=== PATIENT | female | born 1950 | race Hispanic/Latino ===

== ENCOUNTER 2017-06-22 02:04 | Inpatient (IN) | payer OTHER ==
[2017-06-22] VITALS (7 sets, daily range): BP systolic 96–144; BP diastolic 42–96
[~2017-06-22] VITALS: Ht 160 cm; Wt 110.1 kg
[2017-06-22] MEDS ORDERED: LISI-617 PO (04:02)
[2017-06-22] MEDS ORDERED: SPIR25TA4 PO (04:02)
[2017-06-22] MEDS ORDERED: FURO20TA6 PO (04:02)
[2017-06-22] MEDS ORDERED: CARV6.2579 PO (04:02)
[2017-06-22 05:51] LABS: BASOPHILS % (AUTO) 0.1 % (0.0-5.0); HEMATOCRIT 36.8 % (36-48); LYMPHOCYTES % (AUTO) 18.5 % (21.0-51.0); MEAN CORPUSCULAR HEMOGLOBIN 26.6 pg (27.0-33.0); MEAN CORPUSCULAR HGB CONC 32.9 g/dL (32.0-36.0); MEAN CORPUSCULAR VOLUME 80.9 fL (79-99); MONOCYTES % (AUTO) 8.8 % (3.0-13.0); NEUTROPHILS % (AUTO) 72.6 % (40.0-77.0); PLATELET COUNT (AUTO) 185 K/uL (130-400); RED BLOOD CELL COUNT(AUTO) 4.55 MIL/uL (4.00-5.50); RED CELL DISTRIBUTION WIDTH 17.6 % (11.0-15.5)
[2017-06-22 06:01] LABS: INR 0.96 (0.85-1.15); PARTIAL THROMBOPLASTIN TIME 32.3 SEC (26.3-35.5); PROTHROMBIN TIME 10.1 SEC (9.6-11.6)
[2017-06-22 06:05] LABS: B-TYPE NATRIURETIC PEPTIDE 212 pg/mL (0-100)
[2017-06-22 06:13] LABS: ALBUMIN 3.3 g/dL (3.5-5.0); BILIRUBIN,TOTAL 0.5 mg/dL (0.2-1.0); CREATININE 0.9 mg/dL (0.5-1.5); MAGNESIUM 2.2 mg/dL (1.80-2.40); PHOSPHORUS 3.9 mg/dL (2.5-4.9); POTASSIUM 4.4 mmol/L (3.5-5.1); THYROID STIMULATING HORMONE 1.1 uIU/mL (0.36-3.74); TOTAL PROTEIN, SERUM 7.6 g/dL (6.0-8.3)
[2017-06-22] MEDS: IPRATROPIUM/ALBUTEROL SULFATE 3 ML SOLUTION IH SCH ×4 (08:29→18:56)
[2017-06-22] MEDS ORDERED: FUROSEMIDE 10 MG/ML 2ML VIAL IV SCH (09:00)
[2017-06-22] MEDS: MONTELUKAST SODIUM 10 MG TAB PO SCH (09:52)
[2017-06-22] MEDS: SPIRONOLACTONE 25 MG TAB PO SCH ×2 (09:52→21:08)
[2017-06-22] MEDS: LISINOPRIL 5 MG TABLET PO SCH (09:52)
[2017-06-22] MEDS: PANTOPRAZOLE SODIUM 40 MG TABLET.DR PO SCH (09:52)
[2017-06-22] MEDS: OSELTAMIVIR PHOSPHATE 75 MG CAP PO SCH ×2 (09:52→21:07)
[2017-06-22] MEDS: CARVEDILOL 6.25 MG TABLET PO SCH ×2 (09:52→21:08)
[2017-06-22 14:28] LABS: CREATINE KINASE MB 0.7 ng/mL (0.5-3.6); CREATINE KINASE, TOTAL 30 U/L (21-232); MYOGLOBIN 53 ng/mL (10-92); TROPONIN I < 0.04 ng/mL (0.00-0.06)
[2017-06-23] MEDS: IPRATROPIUM/ALBUTEROL SULFATE 3 ML SOLUTION IH SCH ×4 (00:32→19:05)
[2017-06-23 03:53] VITALS: BP 120/88
[2017-06-23 04:12] LABS: HEMATOCRIT 36.7 % (36-48); MEAN CORPUSCULAR HEMOGLOBIN 26.5 pg (27.0-33.0); MEAN CORPUSCULAR HGB CONC 32.7 g/dL (32.0-36.0); MEAN CORPUSCULAR VOLUME 81.2 fL (79-99); NUCLEATED RED BLOOD CELLS 0.1 % (0.0-0.19); PLATELET COUNT (AUTO) 178 K/uL (130-400); RED BLOOD CELL COUNT(AUTO) 4.52 MIL/uL (4.00-5.50); RED CELL DISTRIBUTION WIDTH 17.9 % (11.0-15.5); WHITE BLOOD COUNT (AUTO) 6.4 K/uL (4.8-10.8)
[2017-06-23 04:20] LABS: CREATININE 0.9 mg/dL (0.5-1.5); POTASSIUM 3.9 mmol/L (3.5-5.1)
[2017-06-23 07:00] VITALS: BP 122/62
[2017-06-23] MEDS: SPIRONOLACTONE 25 MG TAB PO SCH ×2 (09:00→20:46)
[2017-06-23] MEDS: LISINOPRIL 5 MG TABLET PO SCH (10:23)
[2017-06-23] MEDS: CARVEDILOL 6.25 MG TABLET PO SCH ×2 (10:24→20:46)
[2017-06-23 11:00] VITALS: BP 113/71
[2017-06-23 16:00] VITALS: BP 108/70
[2017-06-23] MEDS: OSELTAMIVIR PHOSPHATE 75 MG CAP PO SCH ×2 (16:42→20:45)
[2017-06-23] MEDS: MONTELUKAST SODIUM 10 MG TAB PO SCH (16:42)
[2017-06-23] MEDS: FUROSEMIDE 40 MG TABLET PO SCH (16:43)
[2017-06-23] MEDS: PANTOPRAZOLE SODIUM 40 MG TABLET.DR PO SCH (16:43)
[2017-06-23 19:49] VITALS: BP 118/58
[2017-06-24] VITALS (7 sets, daily range): BP systolic 90–134; BP diastolic 55–78
[2017-06-24] MEDS: IPRATROPIUM/ALBUTEROL SULFATE 3 ML SOLUTION IH SCH ×4 (00:40→18:57)
[2017-06-24 03:11] LABS: HEMATOCRIT 37.5 % (36-48); MEAN CORPUSCULAR HEMOGLOBIN 26.2 pg (27.0-33.0); MEAN CORPUSCULAR HGB CONC 32.4 g/dL (32.0-36.0); PLATELET COUNT (AUTO) 171 K/uL (130-400); RED BLOOD CELL COUNT(AUTO) 4.63 MIL/uL (4.00-5.50); RED CELL DISTRIBUTION WIDTH 17.6 % (11.0-15.5); WHITE BLOOD COUNT (AUTO) 6.5 K/uL (4.8-10.8)
[2017-06-24 03:17] LABS: CREATININE 0.7 mg/dL (0.5-1.5); MAGNESIUM 2.1 mg/dL (1.80-2.40); POTASSIUM 3.9 mmol/L (3.5-5.1)
[2017-06-24] MEDS: FUROSEMIDE 40 MG TABLET PO SCH (08:34)
[2017-06-24] MEDS: PANTOPRAZOLE SODIUM 40 MG TABLET.DR PO SCH (08:34)
[2017-06-24] MEDS: OSELTAMIVIR PHOSPHATE 75 MG CAP PO SCH ×2 (08:34→20:12)
[2017-06-24] MEDS: MONTELUKAST SODIUM 10 MG TAB PO SCH (08:34)
[2017-06-24] MEDS: SPIRONOLACTONE 25 MG TAB PO SCH ×2 (08:34→20:12)
[2017-06-24] MEDS: LISINOPRIL 5 MG TABLET PO SCH (08:35)
[2017-06-24] MEDS: CARVEDILOL 6.25 MG TABLET PO SCH (08:35)
[2017-06-24] MEDS ORDERED: CARVEDILOL 3.125 MG TABLET PO SCH (21:00)
[2017-06-25] VITALS (9 sets, daily range): BP systolic 108–141; BP diastolic 50–78
[2017-06-25] MEDS: IPRATROPIUM/ALBUTEROL SULFATE 3 ML SOLUTION IH SCH ×4 (00:10→18:36)
[2017-06-25 04:29] LABS: HEMATOCRIT 38.8 % (36-48); MEAN CORPUSCULAR HEMOGLOBIN 27.4 pg (27.0-33.0); MEAN CORPUSCULAR HGB CONC 33.6 g/dL (32.0-36.0); MEAN CORPUSCULAR VOLUME 81.4 fL (79-99); PLATELET COUNT (AUTO) 202 K/uL (130-400); RED BLOOD CELL COUNT(AUTO) 4.77 MIL/uL (4.00-5.50); RED CELL DISTRIBUTION WIDTH 17.5 % (11.0-15.5)
[2017-06-25 04:40] LABS: CREATININE 0.8 mg/dL (0.5-1.5); POTASSIUM 3.8 mmol/L (3.5-5.1)
[2017-06-25] MEDS ORDERED: ISOVUE-370 50ML VIAL IV ONE ×2 (07:21→13:34)
[2017-06-25] MEDS ORDERED: SODIUM BICARB 50MEQ 50ML VIAL ONE (07:21)
[2017-06-25] MEDS ORDERED: HEPARIN SODIUM 1000UNIT/ML 10ML VIAL ONE (07:21)
[2017-06-25] MEDS ORDERED: IOPAMIDOL-370 100 ML VIAL IV ONE ×2 (07:21→13:34)
[2017-06-25] MEDS ORDERED: LIDOCAINE HCL 2% 20ML ONE ×2 (07:22→13:35)
[2017-06-25] MEDS ORDERED: LISINOPRIL 2.5 MG TABLET PO SCH (09:00)
[2017-06-25] MEDS ORDERED: NITROGLYCERIN 5 MG/ML 10 ML VIAL IV ONE (13:34)
[2017-06-25] MEDS ORDERED: SODIUM CHLORIDE 0.9% 1000ML 1,000 ML IV SCH (14:19)
[2017-06-25] MEDS ORDERED: GLUCAGON 1MG KIT 1 MG ML IM PRN (14:30)
[2017-06-25] MEDS ORDERED: HYDRALAZINE HCL 20 MG/ML VIAL IV PRN (14:30)
[2017-06-25] MEDS ORDERED: DEXTROSE 50%-WATER 50 ML DISP.SYRIN IV PRN (14:30)
[2017-06-25] MEDS ORDERED: LISI2.5T2 PO (16:56)
[2017-06-25] MEDS ORDERED: CARV3.1262 PO (16:56)
[2017-06-25] MEDS ORDERED: FURO40TA7 PO (16:56)
[2017-09-21] MEDS ORDERED: VITAMIN D2 PO (10:27)
== END 2017-06-25 20:36 | disposition home or self-care (01) | DRG 286 ==
LOC: 2AH 02:22
PROVIDERS: ADMIT Family Medicine; ATTEND Family Medicine
PROC: 4A023N7 Measurement of Cardiac Sampling and Pressure, Left Heart, Percutaneous Approach (ICD-10-PCS; principal; 2017-06-25)
PROC: B2111ZZ Fluoroscopy of Multiple Coronary Arteries using Low Osmolar Contrast (ICD-10-PCS; 2017-06-25)
PROC: B2151ZZ Fluoroscopy of Left Heart using Low Osmolar Contrast (ICD-10-PCS; 2017-06-25)
DX: I08.1 Rheumatic disorders of both mitral and tricuspid valves (principal); J96.00 Acute respiratory failure, unspecified whether with hypoxia or hypercapnia; I50.33 Acute on chronic diastolic (congestive) heart failure; E66.01 Morbid (severe) obesity due to excess calories; Z68.41 Body mass index [BMI] 40.0-44.9, adult; I27.20 Pulmonary hypertension, unspecified; E78.5 Hyperlipidemia, unspecified; I25.10 Atherosclerotic heart disease of native coronary artery without angina pectoris; I25.5 Ischemic cardiomyopathy; J10.1 Influenza due to other identified influenza virus with other respiratory manifestations; J20.8 Acute bronchitis due to other specified organisms; J45.909 Unspecified asthma, uncomplicated; M19.90 Unspecified osteoarthritis, unspecified site; I25.2 Old myocardial infarction; Z91.19 Patient's noncompliance with other medical treatment and regimen; Z83.3 Family history of diabetes mellitus; Z82.49 Family history of ischemic heart disease and other diseases of the circulatory system
CPT/HCPCS: 36415; 71045; 80048; 80053; 80061; 82550; 82553; 83735; 83874; 83880; 84100; 84443; 84484; 85025; 85027; 85610; 85730; 93458; 94640; 94664; C1760; C1894; J1644; J1940; J3490; Q9967

== ENCOUNTER 2017-09-25 07:20 | Day surgery (SDC) | payer OTHER, MEDICARE ==
[2017-09-21 09:58] LABS: BASOPHILS % (AUTO) 0.9 % (0.0-5.0); HEMATOCRIT 37.9 % (36-48); LYMPHOCYTES % (AUTO) 27.9 % (21.0-51.0); MEAN CORPUSCULAR HEMOGLOBIN 27.1 pg (27.0-33.0); MEAN CORPUSCULAR HGB CONC 32.1 g/dL (32.0-36.0); MEAN CORPUSCULAR VOLUME 84.5 fL (79-99); MONOCYTES % (AUTO) 10.1 % (3.0-13.0); NEUTROPHILS % (AUTO) 59.1 % (40.0-77.0); PLATELET COUNT (AUTO) 212 K/uL (130-400); RED BLOOD CELL COUNT(AUTO) 4.48 MIL/uL (4.00-5.50); WHITE BLOOD COUNT (AUTO) 5.8 K/uL (4.8-10.8)
[2017-09-21 10:04] LABS: CREATININE 0.7 mg/dL (0.5-1.5); POTASSIUM 4.1 mmol/L (3.5-5.1)
[2017-09-21 10:15] VITALS: BP 143/56
[~2017-09-25] VITALS: Ht 154.9 cm; Wt 113.8 kg
[~2017-09-25 07:20] MED LIST: CARV3.1262 PO; FURO40TA7 PO; LISI2.5T2 PO; SODIUM CHLORIDE 0.9% 1000ML 1,000 ML IV SCH; VITAMIN D2 PO
[2017-09-25 07:22] VITALS: BP 141/66
[2017-09-25] MEDS ORDERED: LIDOCAINE HCL 2% VISCOUS 15 ML UDCUP PO STA (09:05)
[2017-09-25] MEDS ORDERED: MIDAZOLAM HCL 1 MG/ML 2ML VIAL ONE ×3 (09:18→09:20)
[2017-09-25] MEDS ORDERED: FENTANYL CITRATE PF 50 MCG/1 ML 2ML VIAL ONE (09:19)
[2017-09-25 10:34] VITALS: BP 98/62
[2017-09-25 11:00] VITALS: BP 127/70
[2017-09-25 11:15] VITALS: BP 123/60
[2017-09-25 11:30] VITALS: BP 119/57
[2017-09-25 11:45] VITALS: BP 112/55
== END 2017-09-25 11:55 | disposition home or self-care (01) ==
LOC: DAH 07:20 → EDSTATUS 09:00 → DAH 11:55
PROVIDERS: ATTEND Internal Medicine Cardiovascular Disease
DX: I08.1 Rheumatic disorders of both mitral and tricuspid valves (principal); D64.9 Anemia, unspecified; R00.0 Tachycardia, unspecified; I21.3 ST elevation (STEMI) myocardial infarction of unspecified site; Z79.899 Other long term (current) drug therapy; Z82.49 Family history of ischemic heart disease and other diseases of the circulatory system; Z83.3 Family history of diabetes mellitus
CPT/HCPCS: 36415; 80048; 85025; 93312; 93325; A4606; J2250 ×2; J3010; J7030; 99156